=== PATIENT | male | born 1970 | race Caucasian/White ===

== ENCOUNTER 2016-11-18 17:01 | Emergency (ER) | payer BC, MEDICARE, OTHER ==
[~2016-11-18] VITALS: Ht 185.4 cm; Wt 117.0 kg
[~2016-11-18 17:01] MED LIST: ALBU6.7H INH; ALBU8I INH; GUAI100S6 PO; LAMI200T PO; PRED20 PO; PRIL20CA PO
[2016-11-18 17:06] VITALS: BP 141/98; PULSE 92; RESP 16; TEMP 97.3; O2SAT 98
[2016-11-18] MEDS ORDERED: ADDE30TA PO (17:25)
[2016-11-18] MEDS ORDERED: LAMI200T PO (17:25)
--- NOTE | 2016-11-18 17:31 | PD ---
HPI Chief Complaint: Musculoskeletal Complaint Time Seen by Provider: 17:30 Travel History International Travel<30 days: No Contact w/Intl Traveler<30days: No Traveled to known affect area: No PFSH Past Medical History Asthma: Yes Depression: Yes Influenza Vaccination: No Past Surgical History Surgical History: No Previous Surgery Social History Alcohol Use: Yes (OCC) Tobacco Use: No Substance Use: No Allergies-Medications (Allergen,Severity, Reaction): Coded Allergies: No Known Allergies (Unverified , 11/18/16) Reported Meds & Prescriptions Reported Meds & Active Scripts Active Reported Adderall (Amphetamine-Dextroamphetamine) 30 Mg Tab 30 Mg PO DAILY Avoid late evening doses. Space doses at least 4 to 6 hours if more than once/day dosing. Lamictal (Lamotrigine) 200 Mg Tab 200 Mg PO DAILY Data Data Last Documented VS Vital Signs Date Time Temp Pulse Resp B/P Pulse Ox O2 Delivery O2 Flow Rate FiO2 11/18/16 17:06 97.3 92 16 141/98 98 Leobardo Wray Nov 18, 2016 17:31
--- NOTE | 2016-11-18 17:55 | PD ---
HPI Chief Complaint: Musculoskeletal Complaint Time Seen by Provider: 17:30 Travel History International Travel<30 days: No Contact w/Intl Traveler<30days: No Traveled to known affect area: No History of Present Illness HPI This patient has a very atypical complaint. For the last 2-3 weeks he has had discomfort in his left arm into specific spots. One is in the meat of the proximal forearm and one is in the bicep region. No injury. Just discomfort in pinpoint locations. Today his pain resolved completely and he had a warm and tingling sensation in his left arm. No weakness or sensory loss. He has no chest pain or pressure or tightness or heaviness. He has no presyncopal symptoms. He is no speech slurring or confusion or headache. No alleviating factors. Severity is mild PFSH Past Medical History Asthma: Yes Depression: Yes Influenza Vaccination: No Past Surgical History Surgical History: No Previous Surgery Social History Alcohol Use: Yes (OCC) Tobacco Use: No Substance Use: No Allergies-Medications (Allergen,Severity, Reaction): Coded Allergies: No Known Allergies (Unverified , 11/18/16) Reported Meds & Prescriptions Reported Meds & Active Scripts Active Reported Adderall (Amphetamine-Dextroamphetamine) 30 Mg Tab 30 Mg PO DAILY Avoid late evening doses. Space doses at least 4 to 6 hours if more than once/day dosing. Lamictal (Lamotrigine) 200 Mg Tab 200 Mg PO DAILY Review of Systems General / Constitutional: No: Fever Eyes: No: Visual changes HENT: No: Headaches Cardiovascular: No: Chest Pain or Discomfort Respiratory: No: Shortness of Breath Gastrointestinal: No: Abdominal Pain Genitourinary: No: Dysuria Musculoskeletal: Positive: Pain Skin: No Rash Neurologic: Positive: Paresthesia, No: Weakness Psychiatric: No: Depression Endocrine: No: Polydipsia Hematologic/Lymphatic: No: Easy Bruising Physical Exam Narrative SKIN: Inspection shows no rash or ulcers. Palpation shows no induration or nodules. NEUROLOGICAL: Awake and alert. Pupils are equal round and reactive. Motor and sensory grossly within normal limits. Five out of 5 muscle strength in all muscle groups. Normal speech. Psych: Normal mood and affect. Normal insight and judgment. NECK: Symmetrical appearance, midline trachea. No mass or crepitus. Thyroid without enlargement, tenderness, or mass. GASTROINTESTINAL: Abdomen soft, non-tender, nondistended. Positive bowel sounds. No hepato-splenomegaly, or palpable masses. No guarding. Gen.: Well-appearing male without acute distress resting comfortably in the bed Left arm: No tenderness or warmth or redness. Pulse and sensation intact good strength and tone. Data Data Last Documented VS Vital Signs Date Time Temp Pulse Resp B/P Pulse Ox O2 Delivery O2 Flow Rate FiO2 11/18/16 17:06 97.3 92 16 141/98 98 Orders Electrocardiogram (11/18/16 ) [facility] Medical Decision Making Medical Screen Exam Complete: Yes Emergency Medical Condition: Yes Medical Record Reviewed: Yes Differential Diagnosis Peripheral neuropathy, soft tissue injury, CVA, ACS Narrative Course I have reviewed the patient's electronic medical record. Has noted presentation is very atypical. There are no objective findings. I don't think this represents ACS or CVA. I reviewed his EKG which shows sinus rhythm without ST elevation or ectopy Sounds like he has paresthesias on the left arm but no neurologic deficit. I don't think this represents a strokelike phenomenon. Might have peripheral neuropathy Stable for outpatient primary physician follow-up Should he develop stroke symptoms or chest pain he should return promptly Diagnosis Primary Impression: Paresthesia of left arm Additional Instructions: The patient was advised to follow up with their physician and return if they worsen. Med/Other Pt SpecificInfo: Other Disposition: 01 DISCHARGE HOME Condition: Stable Raghav Magana MD Nov 18, 2016 17:55
--- NOTE | 2016-11-18 22:33 | EKG ---
Date Performed: 11/18/2016 Time Performed: 17:47:36 PTAGE: 46 years EKG: Sinus rhythm Poor R wave progression - probable normal variant Low QRS voltages in precordial leads Borderline EC G NO PREVIOUS TRACING DOCTOR: Abelino Schaefer Interpretating Date/Time 11/18/2016 22:31:30
== END 2016-11-18 18:22 | disposition home or self-care (01) ==
LOC: PHEFT 17:01
DX: R20.2 Paresthesia of skin (principal); J45.909 Unspecified asthma, uncomplicated
CPT/HCPCS: 93005